=== PATIENT | female | born 1965 | race Caucasian/White ===

== ENCOUNTER → 2023-03-29 11:06 | Outpatient (CLI) | payer OTHER, SELFPAY ==
[2023-03-29 11:47] LABS: Add Manual Diff / Slide Review NO; Basophils Absolute Auto 100 /uL (0-100); Basophils Percent Auto 1.2 % (0-2); Eosinophils Absolute Auto 100 /uL (0-450); Eosinophils Percent Auto 2.8 % (2-4); Hematocrit 41.2 % (36-46); Hemoglobin 13.7 g/dL (12.0-16.0); Lymphocytes Absolute Auto 1700 /uL (1100-4500); Mean Corpuscular HGB Conc 33.2 % (30-36); Mean Corpuscular Volume 93.2 fL (80-100); Monocytes Absolute Auto 500 /uL (0-900); Monocytes Percent Auto 9.1 % (3-14); Neutrophils Absolute Auto 2900 /uL (1500-7000); Neutrophils Percent Auto 54.9 % (50-75); Platelet Count 338 X10^3/uL (150-400); Red Blood Cell Count 4.42 X10^6/uL (4.0-5.2); Red Cell Distribution Width 12.9 % (11.6-14.8); White Blood Cell Count 5.2 X10^3/uL (4.5-11.0)
[2023-03-29 11:52] LABS: Appearance Urine UA CLEAR; Bilirubin Urine UA NEGATIVE (NEGATIVE); Color Urine UA YELLOW; Glucose Urine UA NEGATIVE (Negative); Ketones Urine UA NEGATIVE (NEGATIVE); Leukocyte Esterase Urine UA NEGATIVE (NEGATIVE); Nitrite Urine UA NEGATIVE (Negative); Occult Blood Urine UA NEGATIVE (Negative); Protein Urine UA NEGATIVE (Negative); Urobilinogen Urine UA 0.2 E.U./dL (0.2)
[2023-03-29 11:54] LABS: pH Urine UA 6.5 (4.5-8.0)
[2023-03-29 12:00] LABS: Bacteria Urine None Seen; Culture Indicated Urine Cult Not Indicated; RBC Urine None Seen (0-5/HPF); Squamous Epithelial Cell Urine None Seen (0-5/HPF); WBC Urine None Seen (0-5/HPF)
[2023-03-29 12:02] LABS: Hemoglobin A1C% w Est Avg Glu 5.3 % (4.0-6.0)
[2023-03-29 12:07] LABS: Erythrocyte Sedimentation Rate 18 MM/HR (0-20)
[2023-03-29 12:17] LABS: BUN Creatinine Ratio 27.3 (6-22); Blood Urea Nitrogen 18 mg/dL (7-17); Calcium 9.7 mg/dL (8.4-10.2); Carbon Dioxide 27 mmol/L (22-32); Chloride 102 mmol/L (98-107); Estimated Glomerular Filt Rate > 60 mL/min (>60); Glucose 95 mg/dL (70-100); HEMOLYSIS < 15 (0-50); Potassium 4.7 mmol/L (3.4-5.1); Sodium 139 mmol/L (137-145)
[2023-03-29 20:12] LABS: C-Reactive Protein Quant 0.8 mg/dL (<1.0)
== END ==
PROVIDERS: Referring Provider Orthopaedic Surgery Adult Reconstructive Orthopaedic Surgery; Visit Provider Orthopaedic Surgery Adult Reconstructive Orthopaedic Surgery
DX: Z01.818 Encounter for other preprocedural examination (principal); Z01.812 Encounter for preprocedural laboratory examination; R73.9 Hyperglycemia, unspecified; N39.0 Urinary tract infection, site not specified; R70.0 Elevated erythrocyte sedimentation rate; R79.82 Elevated C-reactive protein (CRP); M25.552 Pain in left hip
CPT/HCPCS: 36415; 80048; 81001; 83036; 85025; 85651; 86140; 93005; 93010

== ENCOUNTER → 2023-04-04 13:35 | Outpatient (CLI) | payer OTHER, SELFPAY ==
--- NOTE | 2023-04-04 13:36 | DI.RAD.S_ITS ---
PROCEDURE: FL FLUOROSCOPY >1HR INDICATIONS: LEFT HIP PAIN TECHNIQUE: An appropriate site was chosen for fluoroscopic guided joint aspiration and the skin was marked. Skin was prepped and draped in the usual sterile fashion. 1 % lidocaine was used for local anesthesia. 22 gauge spinal needle and subsequently an 18 gauge spinal needle were advanced into the joint space under intermittent fluoroscopic guidance. Multiple aspiration attempts were performed, which yielded scant fluid. 6 cc of sterile normal saline were injected into the joint and additional aspiration attempt was performed, also yielding scant fluid insufficient for laboratory analysis. Needle was withdrawn and a bandage was placed. Patient tolerated the procedure well without immediate complication. COMPARISON: [facility] [place], CR, XR PELVIS WITH LATERAL HIP LEFT, 03/29/2023, 10:02. FINDINGS: Postsurgical changes from left total hip arthroplasty. Needle positioning is partially obscured by arthroplasty hardware. IMPRESSION: Successful fluoroscopically guided access of the left hip for aspiration. No significant fluid was obtained for laboratory analysis despite multiple aspiration attempts. Approved by: Douglas Cespedes M.D. on 04/04/2023 at 15:40
[2023-04-04] MEDS: SODIUM CHLORIDE 0.9 % 20 ML VIAL IV (15:12)
[2023-04-04] MEDS: LIDOCAINE 1% 20 ML INJ (15:12)
== END ==
LOC: RAD 13:35
PROVIDERS: Referring Provider Orthopaedic Surgery Adult Reconstructive Orthopaedic Surgery; Visit Provider Orthopaedic Surgery Adult Reconstructive Orthopaedic Surgery
DX: M25.552 Pain in left hip (principal); Z96.642 Presence of left artificial hip joint
CPT/HCPCS: 76000

== ENCOUNTER 2023-05-19 16:00 | Observation (INO) | payer OTHER, SELFPAY ==
[2023-05-10 12:33] VITALS: BMI 35.2
[2023-05-18] VITALS (13 sets, daily range): BP systolic 96–125; BP diastolic 51–84; PULSE 52–79; RESP 10–20; TEMP 35.8–36.3; O2SAT 93–100; BMI 35.2
--- NOTE | 2023-05-18 | DI.RAD.S_ITS ---
PROCEDURE: XR HIP W PEL IF DONE RT 2V INDICATIONS: RT TOTAL HIP TECHNIQUE: AP pelvis and lateral view of the hip acquired. COMPARISON: [facility], CR, XR HIP W PEL IF DONE RT 2V, 05/18/2023, 10:09. FINDINGS: Bones: Patient is status post right hip arthroplasty, with hardware components in expected positions. The hip joint appears congruent. The visualized bony structures appear intact. Soft tissues: Overlying postoperative changes are noted. No suspicious soft tissue densities. IMPRESSION: Right hip arthroplasty changes. Partially visualized left hip arthroplasty Please see operative note for full details. Dictated by: Cameron Perla M.D. on 05/18/2023 at 11:38 Approved by: Cameron Perla M.D. on 05/18/2023 at 11:39
[2023-05-18 07:16] LABS: Add Manual Diff / Slide Review NO; Basophils Absolute Auto 0 /uL (0-100); Basophils Percent Auto 0.9 % (0-2); Eosinophils Absolute Auto 200 /uL (0-450); Eosinophils Percent Auto 4.4 % (2-4); Hemoglobin 12.8 g/dL (12.0-16.0); Lymphocytes Absolute Auto 1800 /uL (1100-4500); Lymphocytes Percent Auto 37.1 % (25-40); Mean Corpuscular HGB Conc 33.8 % (30-36); Mean Corpuscular Volume 91.7 fL (80-100); Monocytes Absolute Auto 600 /uL (0-900); Monocytes Percent Auto 11.8 % (3-14); Neutrophils Absolute Auto 2200 /uL (1500-7000); Neutrophils Percent Auto 45.8 % (50-75); Platelet Count 232 X10^3/uL (150-400); Red Blood Cell Count 4.14 X10^6/uL (4.0-5.2); Red Cell Distribution Width 13.2 % (11.6-14.8); White Blood Cell Count 4.8 X10^3/uL (4.5-11.0)
[2023-05-18] MEDS: LACTATED RINGERS 1,000 ML 42 ML IV (07:16)
--- NOTE | 2023-05-18 07:42 | PM.PREOP ---
Pre-operative Note Interval Note History & Physical reviewed/Exam performed by Physician: Yes Changes to H&P: No
[2023-05-18 07:54] LABS: BUN Creatinine Ratio 22.9 (6-22); Blood Urea Nitrogen 16 mg/dL (7-17); Calcium 9.1 mg/dL (8.4-10.2); Carbon Dioxide 28 mmol/L (22-32); Chloride 110 mmol/L (98-107); Estimated Glomerular Filt Rate > 60 mL/min (>60); Glucose 94 mg/dL (80-110); HEMOLYSIS < 15 (0-50); Potassium 4.4 mmol/L (3.4-5.1); Sodium 138 mmol/L (137-145)
--- NOTE | 2023-05-18 08:00 | DI.RAD.S_ITS ---
PROCEDURE: XR HIP W PEL IF DONE RT 2V INDICATIONS: right JAYLON. TECHNIQUE: AP pelvis and lateral view of the hip acquired. COMPARISON: [facility] [place], CR, XR PELVIS WITH LATERAL HIP LEFT, 03/29/2023, 10:02. [facility], CR, XR HIP W PEL IF DONE RT 2V, 05/18/2023, 8:51. FINDINGS: Bones: Patient is status post right total hip arthroplasty, with hardware components in expected positions. The hip joint appears congruent. The visualized bony structures appear intact. Stable appearance of the left hip arthroplasty. Soft tissues: Overlying postoperative changes are noted. No suspicious soft tissue densities. IMPRESSION: Expected post-operative appearance of a right hip arthroplasty. Approved by: Douglas Cespedes M.D. on 05/18/2023 at 14:16
[2023-05-18 08:04] LABS: Prothrombin Time 11.2 SECONDS (9.4-12.5)
[2023-05-18] MEDS: TRANEXAMIC ACID 1,000 MG in SODIUM CHLORIDE 0.9% 100 ML 200 MG IV ×2 (08:10→09:40)
[2023-05-18] MEDS: CEFAZOLIN 2 GM/100 ML PREMIX 100 ML IV ×3 (08:10→23:36)
--- NOTE | 2023-05-18 08:17 | SUR.OPER ---
Supine on padded Mayer table with bilateral legs secured in padded positioning boots and suspended in positioning spars, operative leg in traction per surgeon. Head on one pillow. Arms secured on padded armboard <90 degrees abduction. Padded perineal post in place per surgeon.
[2023-05-18] MEDS: ROPIVACAINE/EPI/CLONIDINE/KET 50 ML SYRINGE INJ (08:34)
[2023-05-18] MEDS: SODIUM CHLORIDE 0.9% 1,000 ML 84 ML IV (09:50)
--- NOTE | 2023-05-18 10:02 | P.OP_ITS ---
Operative Date/Time/Diagnoses Date of procedure: 05/18/23 Pre-op diagnosis: Right hip avascular necrosis Post-op diagnosis: same Procedure & Clinicians Procedure: Right total hip arthroplasty Same procedure as scheduled: Yes Surgeon: Devan Gamino Litigation Coordinator: Josette Grande Anesthesia Type: General and Local Operative Notes Estimated Blood Loss (mL): 350 Procedure in detail: Implants: Depuy Total Hip Arthroplasty: * Depuy [place] Gription size 50 cup? * Depuy Actis femoral stem size 3 high offset? * 32 mm + 1.5 ceramic femoral head? 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 She had initially been templated for a standard offset and a +1.5 head however this construct had instability. I initially changed to a standard offset with a +5 head which resulted in excessive lengthening. She had been 5 mm short preoperatively and ended up being considerably longer with that construct. I therefore transitioned to a high offset and a +1.5 head. This was stable at 100? of external rotation. Leg length and offset were appropriate radiographically. Postoperatively she will be on Lovenox Procedure in Detail: This patient was seen preoperatively and evaluated for hip pain which was refractory to numerous nonoperative treatment modalities. Their hip pain correlated with radiographic changes demonstrating significant degeneration in the hip joint. The risks and benefits of continued nonoperative management versus operative management were discussed at length and all of the patient?s questions were answered. Additional educational materials providing further details beyond our discussion in clinic were provided via a publicly available patient education video which included the incidence of medical complications associated with total hip arthroplasty, reasons for revision following total hip arthroplasty, and patient satisfaction rates following total hip arthroplasty. That video can be accessed at [email or web address] . With this understanding of the risks inherent to the procedure, the patient elected to move forward with operative management. Following preoperative optimization, the patient was scheduled for surgery. The patient was met in the preoperative holding area the day of the procedure and all questions were answered. The patient?s nares were swabbed with betadine in order to decolonize them from MRSA. Informed consent was signed and the operative limb was marked with indelible ink.? The patient was brought back to the operating room where anesthesia was induced. The patient was transferred to the [place] table and all bony prominences were padded. The operative site was prepped and draped in the usual sterile fashion. Prior to incision, tranexamic acid and cefazolin were administered. Operative templating images were displayed demonstrating the anticipated implant sizes and correct operative extremity. A timeout procedure was performed verifying the patient?s identity, medical comorbidities, allergies, relevant medications, anesthesia type and the surgical plan. All present were in agreement. The assistance of a physician computer lab assistant was required for positioning, room setup, soft tissue retraction and wound closure. Without this assistance, the procedure would have been significantly more challenging and time consuming.?? A direct anterior approach to the hip was utilized. This was performed with a longitudinal incision through a Heuter interval. The incision was planned 2 cm distal and 2 cm lateral to the ASIS extending towards the lateral patella, in line with the muscle body of the TFL. Following incision, the subcutaneous tissue was dissected while taking care to avoid injury to the lateral femoral cutaneous nerve. The fascia overlying the TFL was identified by dissecting off the overlying fat and identifying perforating vessels to the TFL. The TFL fascia was incised and dissected away from the medial border of the TFL. A cobra retractor was placed over the superior femoral neck between the abductors and the hip capsule and used to reflect the TFL laterally. A [place] self-retainer was then placed in the distal aspect of the wound between the TFL and the rectus femoris. This was tensioned to open up the direct anterior interval and the lateral circumflex vessels were identified and coagulated using electrocautery. The floor of the TFL fascia was incised, exposing the pericapsular fat overlying the hip capsule. A second cobra retractor was placed on the inferior femoral neck. A double-bent soft tissue retractor was placed on the anterior wall of the acetabulum and used to tension the reflected head of rectus femoris, which was then released in order to limit soft tissue tension. A capsulotomy was made in the midline of the anterior hip capsule in line with the femoral neck ending at the vastus tubercle. The double-bent retractor was removed in order to limit the amount of time that a soft tissue retractor remained on the anterior wall and protect the femoral nerve. Tag stitches were placed in the superior and inferior leaflets of the hip capsule. An Viral soft tissue retractor was introduced over the tag stitches and tensioned in the interval between the rectus femoris and the TFL in order to retract and protect those muscles. The cobra retractors were replaced intracapsularly, with one over the superior neck in the pocket created by the base of the greater trochanter and the other on the femoral head. The capsulotomy was extended laterally to the base of the greater trochanter and medially to the lesser trochanter. This required externally rotating the hip. Once the lesser trochanter had been identified, a neck cut was planned according to measurements from preoperative templating. A ruler was cut at the length measured between the superior aspect of the lesser trochanter and the collar of the prosthesis. This line was extended towards the inferior aspect of the lateral cobra retractor to plan a cut which would leave minimal residual femoral neck laterally. The neck was cut at 60 degrees of external rotation along that line. A second cut was performed to remove a large napkin ring and facilitate head extraction. The napkin ring cut and femoral head were removed.?? A broad anterior wall retractor was placed between the labrum and the anterior capsule so that the anterior capsule would prevent capturing and pinching the femoral nerve anteriorly. An additional retractor was placed on the posterior wall. External rotation and traction were applied through the [place] table so that the cut surface of the femoral neck would not restrict access to the acetabulum. The labrum was excised sharply and the pulvinar was excised with electrocautery to limit bleeding from branches of the obturator artery. Acetabular reamers were selected based on preoperative templating and measurements of the excised femoral head. These were introduced into the acetabulum. Fluoroscopy was utilized to replicate a standing AP pelvis radiograph by centering over the pelvis, rotating until there was appropriate symmetry between the obturator foramen, and introducing caudal tilt to match the position of the pubic symphysis relative to the sacrococcygeal junction according to the patient?s anatomy. Fluoroscopy was utilized to ensure appropriate reaming depth. Once satisfied with the reaming depth corresponding to the preoperative template and the pinch fit between the columns, an appropriate sized acetabular cup was selec robinson which would provide 1 mm of press-fit. This cup was introduced and manipulated until appropriate abduction and anteversion angles were obtained with careful attention to appropriate abduction and anteversion angles as evaluated by the position of the cup relative to the anterior and posterior de la cruz of the acetabulum and the AP fluoroscopy which recreated the patient?s standing radiograph. The cup was impacted into place. Peripheral osteophytes were removed. The acetabular liner was then placed with care to ensure locking of the locking mechanism.? Attention was then turned to the femur. All retractors were removed, traction was released, a retractor was placed in the interval between the hip capsule and the gluteus minimus, and the hip was externally rotated to 90 degrees. Traction was applied through the [place] table to tension the lateral capsule and this was released using electrocautery. Traction was released and a [place] hook was placed posteriorly around the proximal femur at the level of the vastus ridge. The table height was lowered in order to restrict the tension on the anterior structures during hip hyperextension to limit the risk of femoral nerve palsy. With traction off and the hip at 90 degrees of external rotation, the hip was hyperextended and adducted while manually elevating the femur away from the acetabulum with the [place] hook to ensure it would not be caught behind the greater trochanter. An asymmetric retractor was placed over the calcar and a broad double-pronged retractor was placed over the greater trochanter. The tag stitch capturing the lateral leaflet of the capsule was moved to the medial side, leaving the conjoined and piriformis tendons isolated in the face of the greater trochanter. The hip was externally rotated and elevated. A release of the conjoined tendon was not necessary in order to obtain adequate exposure for broaching. The canal was opened with an opening broach and a rasp was used to remove cancellous bone. A rongeur was used to remove the residual lateral bone at the base of the greater trochanter to avoid placing the stem in varus. The femur was then broached to the appropriate sized stem yielding good rotational f it and fill of the canal as well as appropriate version of the stem trial. Neck and head trials were placed, all retractors were removed and the hip was returned to neutral abduction and extension. I then reduced the hip. An AP pelvis fluoroscopic image matching the preoperative standing radiograph was obtained with both lesser trochanters visible and both hips in 40 degrees of external rotation. She had initially been templated for a standard offset and a +1.5 head however this construct had instability. I initially changed to a standard offset with a +5 head which resulted in excessive lengthening. She had been 5 mm short preoperatively and ended up being considerably longer with that construct. I therefore transitioned to a high offset and a +1.5 head. This was stable at 100? of external rotation.. An AP hip fluoroscopic image was obtained with the hip in neutral rotation which demonstrated appropriate leg length and offset. Hip stability was evaluated with 90 degrees of external rotation which demonstrated appropriate stability. The hip was dislocated and I returned to the broaching position. The definitive stem was placed and the trunnion was cleaned and dried. I placed a ceramic head onto the trunnion and impacted it into place on the Sheets taper.?? All retractors were removed and the hip was reduced. A dilute mixture of betadine and peroxide was used to bathe the soft tissues during final fluoroscopic assessment. Appropriate component positioning was confirmed on an AP pelvis radiograph with the operative and nonoperative legs in 40 degrees of external rotation, evaluating leg length and offset. Appropriate stem fill was evaluated on an AP hip radiograph with the operative leg in neutral rotation. No fractures were identified on these radiographs. Stability was satisfactory with a 90 degree external rotation test as well as a 45 degree drop test. The hip was copiously irrigated with pulse lavage. The capsule was closed with absorbable interrupted suture. The TFL fascia was closed with barbed suture while carefully protecting the lateral femoral cutaneous nerve from entrapment. A mixture of Ropivacaine, Epinephrine, Clonidine and Toradol was infiltrated throughout the soft tissues. The skin was closed with 2-0 and 3-0 sutures. Surgical glue was applied and a soft dressing was placed.??The sponge, instrument and needle counts were reported as being correct at the end of the case.??No obvious complications occurred. The [facility] [place] [facility] The patient emerged from anesthesia without difficulty and was taken to the PACU in a stable condition.? Plan for aftercare: * Anterior hip precautions * Weightbearing as tolerated * Mobilization as soon as the patient has recovered from anesthesia. If physical therapists are unavailable at the time the patient is ready to ambulate, then nursing staff should help patient ambulate * Lovenox 40 mg once per day for DVT prophylaxis * Multimodal pain regimen with no IV opioids ordered * Anticipate discharge home either later today or tomorrow morning * Follow up at [facility] in 2 weeks * Detailed postoperative instructions available at [email or web address]
[2023-05-18] MEDS: ACETAMINOPHEN IV 1,000 MG/100 ML VIAL 400 MG IV (10:15)
[2023-05-18] MEDS: OXYCODONE IR 5 MG TABLET PO ×2 (10:16→22:09)
[2023-05-18] MEDS: ONDANSETRON 4 MG/2 ML INJ IV (10:25)
[2023-05-18] MEDS: NEO/POLYMIX B/DEX OPHTH SUSP 1 DROPS EYE-LEFT ×4 (10:43→21:14)
[2023-05-18] MEDS: LACTATED RINGERS 1,000 ML 100 ML IV ×2 (11:56→21:14)
[2023-05-18] MEDS: ACETAMINOPHEN 325 MG TABLET 650 MG PO ×3 (11:57→23:36)
[2023-05-18] MEDS: TRAMADOL 50 MG TABLET PO ×2 (11:57→18:10)
[2023-05-18] MEDS: MINERAL OIL/PETROL OPHTH OINT 3.5 GM 1 APPLIC EYE-BOTH (12:34)
--- NOTE | 2023-05-18 12:38 | PC.NURSE ---
Pt arrived from PACU at 1106, A&Ox4, VSS, RA sat 88%, placed on 2L NC. c/o 4/10 pain to R hip and L eye. 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 Pt arrived with eye drops and an ice pack to L eye to help with relief, but still finding the eye discomfort very bothersome. Called down to PACU to get another lubricating eye ointment ordered for eye. C/o mild SOB, improved with oxygen. Patient and spouse oriented to room and call light. Bed in low position, SCDs on, call light within reach.
[2023-05-18] MEDS: IBUPROFEN 600 MG TABLET PO ×2 (15:42→21:13)
--- NOTE | 2023-05-18 15:42 | PT.IIE ---
Current Diagnoses Unilateral primary osteoarthritis, right hip (05/18/23) Surgery Performed Operation Date: 05/18/23 07:45 Actual Procedures p Total Hip Arthroplasty/Anterior Approach(Right) - Devan Gamino MD Surgical History (Last Updated 05/10/23 @ 13:16 by Robyn Rodriguez, RN) History of exam under anesthesia with hemorrhoid banding History of eye surgery History of right oophorectomy History of total left hip replacement Hx of cholecystectomy Hx of colonoscopy Hx of repair of left rotator cuff Hx of repair of right rotator cuff Medical History (Last Updated 05/10/23 @ 13:20 by Robyn Rodriguez, RN) ADHD Anxiety Asthma BCC (basal cell carcinoma), face Depression Diverticulitis (~04/19/23) Factor V Leiden GERD (gastroesophageal reflux disease) Hiatal hernia History of COVID-19 (~2021) History of revision of total replacement of left hip joint Osteoarthritis PTSD (post-traumatic stress disorder) Physical Therapy Inpatient Evaluation/Re-Eval M1 PT/OT-IP Prior Functional Status Start: 05/18/23 15:34 Freq: NEEDED Status: Active Protocol: Document 05/18/23 15:35 KJ (Rec: 05/18/23 15:42 KJ [id number]) Medical Review Prior Functional Status Mobility and Gait Ambulated without assistive device but with a trendelenburg gait. Indep mobility and ADLs Social History Household Members spouse Living Arrangements House Number of Floors (Floors) One Floor Number of Stairs To Enter/Railing? 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 PT-IP Current Condition Start: 05/18/23 15:34 Freq: NEEDED Status: Active Protocol: Document 05/18/23 15:35 KJ (Rec: 05/18/23 15:42 KJ [id number]) Physical Therapy Current Condition Current Condition Evaluation Date 05/18/23 Treatment Diagnosis Impairec mobility s/p R JAYLON anterior approach Onset Date 05/18/23 M3 PT-IP Subjective Start: 05/18/23 15:34 Freq: NEEDED Status: Active Protocol: Document 05/18/23 15:35 KJ (Rec: 05/18/23 15:42 KJ [id number]) Subjective Physical Therapy Visit Type Type Initial Evaluation Visit Start Time 14:30 Visit Stop Time 15:14 Physical Therapy Visit Comments Patient Comments R leg aches, eyes are bothering her, feels dizzy after sitting up Patient Goals Indep mobility Therapy Pain Assessment Pain When Pain Assessed At Rest Pain Present Pain Present Pain Reported Location R hip Intensity 4 left eye Description Aching M4 PT-IP Mobility and Gait Start: 05/18/23 15:34 Freq: NEEDED Status: Active Protocol: Document 05/18/23 15:35 KJ (Rec: 05/18/23 15:42 KJ [id number]) PT-Bed Mobility Assessment Rolling Type of Rolling Roll to Right Level of Assist Minimal Assistance Supine to Sit Supine to Sit Moderate Assistance Sit to Supine Sit to Supine Moderate Assistance Scooting Scooting to Edge of Bed Minimal Assistance Scooting Up and Down in Bed Minimal Assistance PT-Transfer Assessment Sit to and From Stand Sit to and from Stand Contact Guard Assistance Equipment Transfer Assistive Device Front Wheeled Walker Orthotic/Prosthetic Devices or Brace: No Comments Mobility Comments Pt became dizzy after sitting x 2 min. Returned to supine position under care of nursing staff PT-Balance Assessment Sitting Balance and Reactions Static Sitting Balance Ability Good M5 PT-IP Objective Assessments Start: 05/18/23 15:34 Freq: NEEDED Status: Active Protocol: Document 05/18/23 15:35 KJ (Rec: 05/18/23 15:42 KJ [id number]) Orientation Orientation/Cognition Level of Alertness Alert Orientation Name,Birthday,Month,Date,Year, Situation Language Function Ability No Deficits Noted Safety Awareness Understands Safety Issues Gross Range of Motion Upper Extremity ROM Assessment Within Functional Limits Lower Extremity ROM Assessment Right Impaired Impairments s/p THR Strength Upper Extremity Strength Assessment Within Functional Limits Lower Extremity Strength Hip 2/5 Knee 3/5 Ankle 5/5 Coordination Assessment Gross Coordination Gross Coordination WNL M6 PT-IP Treatment Start: 05/18/23 15:34 Freq: NEEDED Status: Active Protocol: Document 05/18/23 15:35 KJ (Rec: 05/18/23 15:42 KJ [id number]) Physical Therapy Treatment Exercises Exercises Ankle Pumps,Gluteal Sets,Quad Sets,Heel Slides Education Education Provided Precautions,Weight Bearing Status,Safety M7 PT-IP Assessment and Plan Start: 05/18/23 15:34 Freq: NEEDED Status: Active Protocol: Document 05/18/23 15:35 KJ (Rec: 05/18/23 15:42 KJ [id number]) PT Summary Assessment and Plan Potential Rehabilitation Potential Excellent Status of Condition at Evaluation Evolving Summary Impairments Pain,ROM,Strength,Bed Mobility ,Transfers Assessment Summary poor tolerance to upright position Goals Bed Mobility Goal Standby Assistance Transfer Goal Standby Assistance Gait Goal Standby Assistance Gait Distance 100' Other Goals Able to perform HEP Frequency of Treatment Frequency Of Treatment Twice a Day Treatment Plan Physical Therapy Treatment Plan Bed Mobility Training,Transfer Training,Gait Training, Therapeutic Exercise Precautions Anterior Hip Precautions No Hip Extension,No Hip External Rotation Weight Bearing Status Weight Bearing Status Weight Bear as Tolerated Recommendations To Nursing Amount of Assist Needed 1 Person Assist Discharge Recommendations PT Discharge Recommendations Home with Assistance Transportation Needs at Discharge Private Vehicle
--- NOTE | 2023-05-18 17:10 | P.PN_ITS ---
Subjective Subjective Interval history: Patient seen postoperatively. Resting comfortably. Pain appropriately controlled. She had some irritation of her left eye upon awakening from anesthesia. I have provided her an ointment with erythromycin and dexamethasone. This is helping. She has a history of ophthalmologic surgery on that eye with an implant. She is going to follow up in the outpatient setting regarding any impact on her eye from her presumed corneal abrasion and we will continue with the ointment. She sat upright with physical therapy and attempted to stand but became lightheaded and sat back down. She is going to stay overnight and we will plan to work with physical therapy again tomorrow. She is not having any other issues at this point in time. Given her factor 5 Leiden we will start Lovenox 40 mg once per day tomorrow. I am going to have her go home with compression stockings as well. While she is here we will have her also use the pneumatic compression devices. Anticipate discharge home tomorrow Exam Vital Signs (past 8 hours): - 05/18/23 10:10 05/18/23 10:15 05/18/23 10:20 Temperature 97.2 F L Pulse Rate 79 75 52 L Respiratory Rate 12 12 12 Blood Pressure 122/63 115/62 96/64 Pulse Oximetry 98 98 98 Oxygen Delivery Method Room Air Room Air Room Air Oxygen Flow Rate 05/18/23 10:25 05/18/23 10:30 05/18/23 10:44 Temperature 97.2 F L Pulse Rate 74 70 68 Respiratory Rate 12 10 L 10 L Blood Pressure 104/60 109/69 113/59 L Pulse Oximetry 99 96 95 Oxygen Delivery Method Room Air Room Air Room Air Oxygen Flow Rate 05/18/23 11:06 05/18/23 11:06 05/18/23 11:30 Temperature 96.5 F L 96.5 F L Pulse Rate 60 60 Respiratory Rate 20 20 Blood Pressure 107/51 L 107/51 L Pulse Oximetry 97 97 Oxygen Delivery Method Nasal Cannula Oxygen Flow Rate 0 0 05/18/23 11:36 05/18/23 12:06 05/18/23 13:06 Temperature Pulse Rate 61 66 65 Respiratory Rate Blood Pressure 117/62 111/64 100/60 Pulse Oximetry 100 100 93 Oxygen Delivery Method Oxygen Flow Rate 2 0 0 05/18/23 14:06 Temperature Pulse Rate 65 Respiratory Rate Blood Pressure 105/84 Pulse Oximetry 97 Oxygen Delivery Method Oxygen Flow Rate 0 Oxygen Delivery Method Nasal Cannula Oxygen Flow Rate 0 Objective Labs 05/18/23 06:50 05/18/23 07:20 Labs: Laboratory Results - last 24 hr 05/18/23 05/18/23 05/18/23 06:50 07:20 07:45 WBC 4.8 RBC 4.14 Hgb 12.8 Hct 38.0 MCV 91.7 MCH 31.0 MCHC 33.8 RDW 13.2 Plt Count 232 Neut % (Auto) 45.8 L Lymph % (Auto) 37.1 [place] % (Auto) 11.8 Eos % (Auto) 4.4 H Baso % (Auto) 0.9 Neut # (Auto) 2200 Lymph # (Auto) 1800 [place] # (Auto) 600 Eos # (Auto) 200 Baso # (Auto) 0 PT 11.2 INR 1.0 Sodium 138 Potassium 4.4 Chloride 110 H Carbon Dioxide 28 BUN 16 Creatinine 0.70 Estimated GFR > 60 BUN/Creatinine Ratio 22.9 H Glucose 94 Calcium 9.1 Blood Type O Positive Antibody Screen Negative Crossmatch See Detail [facility] Medical History (Updated 05/10/23 @ 13:20 by Robyn Rodriguez RN) History of revision of total replacement of left hip joint PTSD (post-traumatic stress disorder) ADHD Anxiety Depression BCC (basal cell carcinoma), face Osteoarthritis Hiatal hernia GERD (gastroesophageal reflux disease) Diverticulitis (~04/19/23) Asthma Factor V Leiden History of COVID-19 (~2021) Surgical History (Updated 05/10/23 @ 13:16 by Robyn Rodriguez RN) Hx of colonoscopy History of exam under anesthesia with hemorrhoid banding Hx of repair of left rotator cuff Hx of repair of right rotator cuff History of total left hip replacement History of right oophorectomy Hx of cholecystectomy History of eye surgery Social History household members: spouse Smoking Status: Former smoker alcohol intake: current Quality VTE Deep Vein Thrombosis/Pulmonary Embolism Present on Admission: No
[2023-05-18] MEDS: FAMOTIDINE 20 MG TABLET PO (18:10)
[2023-05-18] MEDS: DOCUSATE 100 MG CAPSULE PO (21:13)
[2023-05-19] VITALS (12 sets, daily range): BP systolic 64–131; BP diastolic 27–58; PULSE 46–94; RESP 16–22; TEMP 36–36.9; O2SAT 93–98
[2023-05-19] MEDS: IBUPROFEN 600 MG TABLET PO ×4 (03:56→20:43)
[2023-05-19] MEDS: TRAMADOL 50 MG TABLET PO ×2 (03:56→09:16)
[2023-05-19] MEDS: ACETAMINOPHEN 325 MG TABLET 650 MG PO ×3 (05:53→17:58)
[2023-05-19 06:30] LABS: Hematocrit 29.1 % (36-46)
[2023-05-19] MEDS: DOCUSATE 100 MG CAPSULE PO ×2 (08:19→20:43)
[2023-05-19] MEDS: OXYCODONE IR 5 MG TABLET PO ×4 (08:19→18:55)
[2023-05-19] MEDS: FAMOTIDINE 20 MG TABLET PO ×2 (08:19→16:32)
[2023-05-19] MEDS: ENOXAPARIN 40 MG/0.4 ML SYRINGE SUBCUT (08:19)
[2023-05-19] MEDS: NEO/POLYMIX B/DEX OPHTH SUSP 1 DROPS EYE-LEFT ×4 (08:21→20:35)
--- NOTE | 2023-05-19 09:00 | PT.IPTN ---
Current Diagnoses Unilateral primary osteoarthritis, right hip (05/18/23) Surgery Performed Operation Date: 05/18/23 07:45 Actual Procedures p Total Hip Arthroplasty/Anterior Approach(Right) - Devan Gamino MD Physical Therapy Treatment Note M2 PT-IP Current Condition Start: 05/18/23 15:34 Freq: NEEDED Status: Active Protocol: Document 05/18/23 15:35 KJ (Rec: 05/18/23 15:42 KJ [id number]) Physical Therapy Current Condition Current Condition Evaluation Date 05/18/23 Treatment Diagnosis Impairec mobility s/p R JAYLON anterior approach Onset Date 05/18/23 M3 PT-IP Subjective Start: 05/18/23 15:34 Freq: NEEDED Status: Active Protocol: Document 05/19/23 09:36 TS (Rec: 05/19/23 09:47 TS [id number]) Subjective Physical Therapy Visit Type Type Treatment Note Visit Start Time 09:00 Visit Stop Time 09:35 Number of VULCAN CREWMEMBER Visits 1 Physical Therapy Visit Comments Patient Comments Pt found resting in bed, 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 Therapy Pain Assessment Pain When Pain Assessed At Rest Pain Present Pain Present Pain Reported M4 PT-IP Mobility and Gait Start: 05/18/23 15:34 Freq: NEEDED Status: Active Protocol: Document 05/19/23 09:36 TS (Rec: 05/19/23 09:47 TS [id number]) PT-Bed Mobility Assessment Supine to Sit Supine to Sit Standby Assistance Sit to Supine Sit to Supine Contact Guard Assistance Scooting Scooting to Edge of Bed Standby Assistance Scooting Up and Down in Bed Standby Assistance PT-Transfer Assessment Sit to and From Stand Sit to and from Stand Standby Assistance Equipment Transfer Assistive Device Gait Belt,Front Wheeled Walker Orthotic/Prosthetic Devices or Brace: No Comments Mobility Comments BP in supine 117/54 prior to mobility. Supine to sit SBA with HOB elevated 30D. STS from bed SBA with FWW, pt had good standing balance. She ambulated to toilet SBA ~10' with FWW, denied any dizziness . STS from toilet SBA with use of grab bars. Pt stood for taking of medications, agreeable to ambulate further. She ambulated in hallway ~60' SBA with FWW, pt began to report blurred vision and some dizziness. pt ambulated back to room, rpeortd feeling hot and sweaty, she sat EOB. BP in sitting 64/27. Sit to supine CGA for LEs' into bed, she scooted to HOB SBA, nurisng in room checking on pt. BP in supine 108/49. Pt was left with nursing and all needs met . Gait Assessment Gait Gait Assistance Required: Standby Assistance Distance (Feet) 70 Able to Maintain Weight Bearing Status Yes During Gait Assistive Devices Assistive Device Gait Belt,Front Wheeled Walker Orthotic/Prosthetic Devices or Brace: No Gait Deviations General Gait Pattern Antalgic,Decreased Stride Length,Decreased Feet Clearance,Step-to Gait Factors Limiting Gait Function Factors Limiting Gait Function Decreased Activity Tolerance, Decreased Strength,Pain,Poor Balance PT-Balance Assessment Sitting Balance and Reactions Static Sitting Balance Ability Good Dynamic Sitting Balance Ability Good Standing Balance and Reactions Static Standing Balance Ability Good Dynamic Standing Balance Ability Fair M5 PT-IP Objective Assessments Start: 05/18/23 15:34 Freq: NEEDED Status: Active Protocol: Document 05/18/23 15:35 KJ (Rec: 05/18/23 15:42 KJ [id number]) Orientation Orientation/Cognition Level of Alertness Alert Orientation Name,Birthday,Month,Date,Year, Situation Language Function Ability No Deficits Noted Safety Awareness Understands Safety Issues Gross Range of Motion Upper Extremity ROM Assessment Within Functional Limits Lower Extremity ROM Assessment Right Impaired Impairments s/p THR Strength Upper Extremity Strength Assessment Within Functional Limits Lower Extremity Strength Hip 2/5 Knee 3/5 Ankle 5/5 Coordination Assessment Gross Coordination Gross Coordination WNL M6 PT-IP Treatment Start: 05/18/23 15:34 Freq: NEEDED Status: Active Protocol: Document 05/19/23 09:36 TS (Rec: 05/19/23 09:47 TS [id number]) Physical Therapy Treatment Education Education Provided Precautions,Weight Bearing Status,Safety M7 PT-IP Assessment and Plan Start: 05/18/23 15:34 Freq: NEEDED Status: Active Protocol: Document 05/19/23 09:36 TS (Rec: 05/19/23 09:47 TS [id number]) PT Summary Assessment and Plan Potential Rehabilitation Potential Excellent Summary Impairments Pain,ROM,Strength,Bed Mobility ,Transfers Progress Towards Goals Slow Progress due to Medical Issues Assessment Summary Amita is making some progress with her mobility but remains limited by ongoing hypotension . She is SBA for bed mobility with HOB elevated. She progressed her gait to ~70'SBA with FWW. While ambulating pt became dizzy, hot, sweaty and had some blurred vision(see vitals in mobility comments).. She is mobilizing well despite her hypotension. PT is recommending home with assist and outpatient PT when medically stable. Goals Bed Mobility Goal Standby Assistance Transfer Goal Standby Assistance Gait Goal Standby Assistance Gait Distance 100' Other Goals Able to perform HEP Frequency of Treatment Frequency Of Treatment Twice a Day Treatment Plan Physical Therapy Treatment Plan Bed Mobility Training,Transfer Training,Gait Training, Therapeutic Exercise Precautions Anterior Hip Precautions No Hip Extension,No Hip External Rotation Weight Bearing Status Weight Bearing Status Weight Bear as Tolerated Recommendations To Nursing Amount of Assist Needed 1 Person Assist Discharge Recommendations PT Discharge Recommendations Home with Assistance, Outpatient PT Transportation Needs at Discharge Private Vehicle
--- NOTE | 2023-05-19 09:44 | P.DS_ITS ---
History of Present Illness History of Present Illness Date Patient Seen: 05/19/23 Time Patient Seen: 09:44 Chief complaint: Right Total Hip Arthroplasty/Anterior Approach Narrative: Operative Date/Time/Diagnoses Date of procedure: 05/18/23 Pre-op diagnosis: Right hip avascular necrosis Post-op diagnosis: same Procedure & Clinicians Procedure: Right total hip arthroplasty Same procedure as scheduled: Yes Surgeon: Devan Gamino Bitumastic Applier: Josette Grande Anesthesia Type: General and Local Operative Notes Estimated Blood Loss (mL): 350 Procedure in detail: Implants: Depuy Total Hip Arthroplasty: * Depuy [place] Gription size 50 cup? * Depuy Actis femoral stem size 3 high offset? * 32 mm + 1.5 ceramic femoral head? 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 She had initially been templated for a standard offset and a +1.5 head however this construct had instability. I initially changed to a standard offset with a +5 head which resulted in excessive lengthening. She had been 5 mm short preoperatively and ended up being considerably longer with that construct. I therefore transitioned to a high offset and a +1.5 head. This was stable at 100? of external rotation. Leg length and offset were appropriate radiographically. Postoperatively she will be on Lovenox Discharge Providers Provider Discharge Date: 05/19/23 Consults: 05/11/23 12:38 Consult to Anesthesiology Routine Comment: Consulting Provider: Anesthesiologist Reason for consultation: Regional block for post operative pain control 05/18/23 11:23 Consult to Discharge Planning Routine Comment: Consult to Physical Therapy Evaluate & Treat Comment: Physician Instructions: post op JAYLON protocol Discharge provider: Maureen Phillips PA-C Summary Hospital Course Discharge Diagnosis: Right hip avascular necrosis, s/p right total hip arthroplasty Hospital Course: Ms Mayfield's hospital course was unremarkable. On the morning of POD# 1, she was feeling well and wanted to go home. She was eating and voiding without difficulty, and her pain was well-controlled with oral medication. She was evaluated by PT and they felt she was safe to discharge home. Her RN reported an episode of orthostatic hypotension, but she was otherwise stable. She suffered a corneal abrasion during surgery and initially had very poor vision in her left eye, but this mostly resolved. She has bilateral Intacs and was encouraged to follow up with her garment mender for evaluation. Exam Vital Signs (past 8 hours): - 05/19/23 04:45 05/19/23 08:27 Temperature 97.6 F 97.6 F Pulse Rate 61 63 Respiratory Rate 18 17 Blood Pressure 118/58 L 96/56 L Pulse Oximetry 97 98 Oxygen Flow Rate 0 0 Oxygen Delivery Method Nasal Cannula Oxygen Flow Rate 0 Narrative Exam Narrative: 5/5 strength in hip flexors, quadriceps, hamstrings, DF, PF, EHL on right. Sensation to light touch intact throughout RLE. Calf soft, compressible, nontender. Aquacel dressing CDI. Objective Labs 05/19/23 05:45 05/18/23 07:20 Labs: Laboratory Results - last 24 hr 05/19/23 05:45 Hgb 10.0 L Hct 29.1 L PFSH Medical History (Updated 05/10/23 @ 13:20 by Robyn Rodriguez RN) History of revision of total replacement of left hip joint PTSD (post-traumatic stress disorder) ADHD Anxiety Depression BCC (basal cell carcinoma), face Osteoarthritis Hiatal hernia GERD (gastroesophageal reflux disease) Diverticulitis (~04/19/23) Asthma Factor V Leiden History of COVID-19 (~2021) Surgical History (Updated 05/19/23 @ 09:50 by Maureen Phillips PA-C) Hx of colonoscopy History of exam under anesthesia with hemorrhoid banding Hx of repair of left rotator cuff Hx of repair of right rotator cuff History of total left hip replacement History of right oophorectomy Hx of cholecystectomy History of eye surgery Social History household members: spouse Smoking Status: Former smoker alcohol intake: current Discharge Assessment & Plan Assessment and Plan Assessment: Right hip avascular necrosis, s/p right total hip arthroplasty Plan of Treatment: Discharge home, lovenox for VTE prophylaxis (pt has rx), multmodal pain control. Pt requests Tramadol rather than oxycodone - will send rx. Outpt PT, f/u in office in 2 weeks as scheduled. Discharge Plan Discharge Plan Patient Disposition: Home Discharge orders & Medications Discharge Orders: Discharge (Order); Ordered 05/19/23 Ordered By: Maureen Phillips Prescriptions: New tramadol 50 mg Tablet 50 mg PO QID PRN (Reason: Pain, Moderate (4-6)) Qty: 60 0RF Continued famotidine 20 mg Tablet 20 mg PO QD-BID PRN (Reason: GI Upset) Follow up/Referrals: Devan Gamino MD [Physician] - 06/01/23 2:00 pm (Follow up w/ Christiano Butt PA-C, at [facility] in [place]) Diet/Activity/Treatments Diet: Diet as Tolerated Activity: Weightbearing as tolerated to right leg. Posterior hip precautions. Cold/Heat Therapy: Ice to hip as needed for pain. Skin/Wound/Dressing Care Report to your healthcare provider any signs of infection, such as:: chills, fever, night sweats, unusual drainage and unusual redness Dressing: May shower. Leave dressing in place until follow up in office. No bathing or otherwise soaking incision. Call the office if the dressing becomes saturated inside. Visit Report/Discharge Packet Instructions: DI for Hip Replacement, DI for Prescription Opioid Use Stand Alone Forms: Patient Portal/API, Surgery Discharge Discharge Data Attending Provider: Devan Gamino Quality VTE Deep Vein Thrombosis/Pulmonary Embolism Present on Admission: No
[2023-05-19] MEDS: TRAMADOL 50 MG TABLET 100 MG PO ×2 (13:19→20:43)
--- NOTE | 2023-05-19 13:59 | CM.DANOTE ---
Patient is a 58 yo female who was admitted on 05/18/23 for RTHA. Pt has [facility] [employer] for insurance and her PCP is not listed. EMR was reviewed. Per Ortho PA, pt tolerated procedure well and pain seems to be fairly managed, tolerating diet, voided independently and worked with PT and likely discharge home today after PT. Per LINING VAMPER, recommending home with assist but during CG training this AM, pt's bp tanked and pt requiring bolus and pending orthostatics might not be stable to d/c home yet today. SW met bedside with pt and spouse Mackenzie and explained role and they confirm that they live in [facility] and are both active and independent at baseline and pt does not use DME for ambulation at baseline and still drives. 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 Pt states her exhusband lives down the street if needed for assist and her son lives in [facility]. Pt preference is to remain overnight due to ongoing dizziness and 60/20 bp and is hopeful for discharge home tomorrow with spouse assist. Pt states she already has PT outpt set up after discharge. SW discussed HH services and frequency as well as SNF rehab in case pt's bp issues do not resolve and not safe for home and pt and spouse hopeful to avoid SNF but discussed pt's current auth for RTHA was SDC. Pt and spouse acknowledge understanding. Plan: SW to follow closely in the AM to confirm pt's bp issues have resolved and able to ambulate with PT towards home with spouse assist. SONAL Smith Discharge Planning/Care Management CM Discharge Assessment Start: 05/19/23 13:57 Freq: Status: Active Protocol: Document 05/19/23 13:58 BF (Rec: 05/19/23 13:59 BF [id number]) Discharge Planning Assessment Assigned Jig Bore Operator SONAL Bianchi DPOA/Assigned Designee Name spouse Mackenzie Contact Information [phone] Advance Directives? No Advance Directives on File No History Provided By Patient,Significant Other, Medical Record Has Patient been admitted in last 30 No days? Prior Living Arrangements House Household Members spouse Type of transporation used prior to Drives own vehicle admit Independent with ADL's Yes Is patient alert and oriented? Yes Caregiver for Another No Community Services used prior to Physical Therapy admission: DME Already Rented / Owned FWW / Walker Patient/Family Preference OP PT Therapy Barriers to Discharge Yes Comment BP issues, discharge cancelled for today Discharge Plan Home Community Services Physical Therapy Transportation Arrangement spouse bedside and plans to transport at d/c Additional Comment Pending pt's progress with orthostatics Whiteboard Updated in Patient Room with Yes name and ext. # of Jig Bore Operator Review Status In Process Please Provide Date Initial DC 05/19/23 Assessment Was Performed Next Review Type Continued Stay Review Pre-Anesthesia Assessment Start: 05/10/23 12:32 Freq: Status: Complete Protocol: Document 05/10/23 12:33 CAB (Rec: 05/10/23 13:25 CAB [id number]) Pre-Anesthesia Assessment Patient Information Reviewed Via Phone Assessment Assessment Completed With Patient Diagnostic Results BMP/CMP,CBC,EKG Comment Labs/EKG @ [facility] 03/29/23 Primary Care Provider Shruthi Cristobal Comment PCP clearance form 04/05/23 scanned and in surgery folder for dos Seen Specialist in Last 12 Months Yes Specialist Seen Orthopedist Primary Language Bulgarian Chemistry Tutor Required No Height 160.02 cm Weight 90.265 kg Body Mass Index (BMI) 35.2 Hearing Ability Normal Visual Assist Glasses Dentition Type Teeth, Natural Present Barriers to Learning None Hx Anesthesia Reactions No Hx Family Anesthesia Reaction No Hx Malignant Hyperthermia No Hx Blood Transfusions Yes: Autologous Anesthesia Review Requested No Command And Control No alcohol intake current alcohol intake frequency 0-2 drinks per day Smoking Status Former smoker how long ago did patient quit smoking Quit 2020 Substance Use Type marijuana Comment Edibles Pain Present Pain Reported Musculoskeletal Symptoms Abnormal Gait,Difficulty Walking,Joint Pain History of Falling (Recent or History of No ) Patient is completely paralyzed or No completely immobile Prosthesis or Orthotic Device Cane Mental Status Oriented to own ability Is patient on oxygen? No Does patient have MCCLURE/SOB No Hx Sleep Apnea No Currently Taking a Beta Martha No Hx Chest Pain No Hx SOB No Hx Syncope or Dizziness No Anti-Coagulant Therapy No Has a Desilverizer No Cardiac Testing No Hx Pacemaker/ICD No Pacemaker Rep Required? No Cardiac Clearance Received Not Applicable Diet Type At Home Regular Dysphagia No Gastrointestinal Symptoms Diarrhea,Reflux Urinary Catheter Present No Hx Urinary Self Catheterization No Diabetes No HgbA1C 5.3 Date 03/29/23 Patient No Lactating No Hx Drug Resistant Organism No Presence of External or Internal Medical Yes: Left hip, left eye Devices Received a COVID vaccine? Yes Received all doses? No Marital Status Lives With spouse Current Living Arrangements House Number of Floors (Floors) Two Floors Support System Spouse Does the Patient Have Assistance After Yes Surgery Patient Discharge Plan Description Return Home Comment Pt no advised on length of stay per surgeon Feels Safe in Current Environment Yes Been Physically Hurt or Threatened By a No Person in Current Environment Do you have thoughts of harming yourself None or others? Are you currently considering suicide? No Do you have a plan to hurt yourself or No Plan others? Do You Have Any Spiritual Beliefs That No May Affect Your HC Choices? Do You Have Any Cultural Practices That No May Affect Your HC Choices? Who Can We Speak to About Patient's Care Family, friends Identifying Code for Release of Patient Declines to issue Information Health Care Proxy/Next of Kin Mackenzie Mayfield () Health Care Proxy Emergency Contact Name Mackenzie Mayfield () Emergency Contact Advance Directives? No Power of Performing Arts [address] Manager No PAC Instructions Do not shave/clip surgical site,Durable medical equipment ,Medications to take/avoid, Nasal antibiotic,No ETOH/ petroleum product on skin DOS, NPO,Post-op transportation,Pre -surgical wash,Sensory aids, Sturdy shoes/comfortable clothes,Do not bring valuables and remove jewelry
--- NOTE | 2023-05-19 14:50 | PC.NURSE ---
Spoke to Dr. Park about this RNs concerns about the pt's continued hypotensive and despite LR infusing at 100 ml/hr and 500 ml bolus. Pt continues to remain hypotensive and become symptomatic with dizziness, diaphoretic, pale, and pt stated I feel like I'm going to pass out. Dr. Park provided the following the orders including that the pt will stay overnight tonight, continue LR at 100/hr, oxycodone 5 mg for moderate pain and 10 mg for pain greater than 5 out of 10.
--- NOTE | 2023-05-19 15:08 | PT-IP ANOTE ---
Per nursing pt continues to be orthostatic and is symptomatic, she is to receive more fluid this afternoon. Pt deferred to have PT tomorrow morning, she is getting up with nursing staff.
[2023-05-19] MEDS: LACTATED RINGERS 1,000 ML 100 ML IV (15:10)
[2023-05-19] MEDS: OXYCODONE IR 10 MG TABLET PO ×2 (15:10→18:30)
[2023-05-19] MEDS: HYDROMORPHONE 0.5 MG INJ 1 MG IV (17:58)
[2023-05-19] MEDS: polyethylene glycoL 3350 17 GM POWD.PACK PO (20:43)
[2023-05-20] MEDS: OXYCODONE IR 5 MG TABLET PO ×4 (00:17→10:54)
[2023-05-20] MEDS: ACETAMINOPHEN 325 MG TABLET 650 MG PO ×3 (00:18→11:38)
[2023-05-20 00:35] VITALS: BP 110/56; PULSE 80; RESP 16; TEMP 36.5; O2SAT 96
[2023-05-20] MEDS: LACTATED RINGERS 1,000 ML 100 ML IV (01:16)
[2023-05-20] MEDS: IBUPROFEN 600 MG TABLET PO ×2 (03:09→08:31)
[2023-05-20 03:21] VITALS: BP 142/52; PULSE 68; RESP 18; TEMP 36.4; O2SAT 98
--- NOTE | 2023-05-20 03:34 | PC.NURSE ---
Addendum entered by Robyn Mckinley R.N. 05/20/23 04:36: IVF continued per order* Original Note: teachers' assistant: Patient is AxOx4, VSS, O2 saturation 98% on RA. Hypotensive at start of shift, orthostatic vitals completed twice (see documentation), BP currently 142/52 (MAP 82). Ambulated to bathroom w/o drop in BP, denies dizziness/lightheadedness, tolerated well. Tolerating PO fluids well. d/c'd IVF. Pain adequately controlled w/ scheduled post-op meds & 5mg Oxycodone Q3hrs. Right hip incision covered w/ aquacel drsg is CDI, ice pack in place. Compression stockings & SCDs are on, CMS intact. Oriented to call-light. Plan of care ongoing.
[2023-05-20] MEDS: polyethylene glycoL 3350 17 GM POWD.PACK PO (08:30)
[2023-05-20] MEDS: ENOXAPARIN 40 MG/0.4 ML SYRINGE SUBCUT (08:30)
[2023-05-20] MEDS: DOCUSATE 100 MG CAPSULE PO (08:32)
[2023-05-20] MEDS: TRAMADOL 50 MG TABLET 100 MG PO ×2 (08:33→13:16)
[2023-05-20] MEDS: NEO/POLYMIX B/DEX OPHTH SUSP 1 DROPS EYE-LEFT ×2 (08:34→13:16)
[2023-05-20 09:05] VITALS: BP 111/66; PULSE 70; RESP 70; TEMP 36.6; O2SAT 99
--- NOTE | 2023-05-20 10:41 | PT.IPTN ---
Current Diagnoses Unilateral primary osteoarthritis, right hip (05/18/23) Presence of unspecified artificial hip joint (05/18/23) Surgery Performed Operation Date: 05/18/23 07:45 Actual Procedures p Total Hip Arthroplasty/Anterior Approach(Right) - Devan Gamino MD Physical Therapy Treatment Note M2 PT-IP Current Condition Start: 05/18/23 15:34 Freq: NEEDED Status: Active Protocol: Document 05/18/23 15:35 KJ (Rec: 05/18/23 15:42 KJ [id number]) Physical Therapy Current Condition Current Condition Evaluation Date 05/18/23 Treatment Diagnosis Impairec mobility s/p R JAYLON anterior approach Onset Date 05/18/23 M3 PT-IP Subjective Start: 05/18/23 15:34 Freq: NEEDED Status: Active Protocol: Document 05/20/23 10:03 KS (Rec: 05/20/23 11:24 KS [id number]) Subjective Physical Therapy Visit Type Type Treatment Note Visit Start Time 10:03 Visit Stop Time 10:41 Notes Spouse present for majority of treatment. Number of STATE ARCHIVIST Visits 2 Physical Therapy Visit Comments Patient Comments Pt in bed, eager to participate. M4 PT-IP Mobility and Gait Start: 05/18/23 15:34 Freq: NEEDED Status: Active Protocol: Document 05/20/23 10:03 KS (Rec: 05/20/23 11:24 KS [id number]) PT-Bed Mobility Assessment Supine to Sit Supine to Sit Minimal Assistance Sit to Supine Sit to Supine Minimal Assistance Scooting Scooting to Edge of Bed Standby Assistance Scooting Up and Down in Bed Standby Assistance PT-Transfer Assessment Sit to and From Stand Sit to and from Stand Standby Assistance Equipment Transfer Assistive Device Gait Belt,Front Wheeled Walker Orthotic/Prosthetic Devices or Brace: No Transfers Transfer Destination Bed Transfer Technique pt ambulated Transfer Ability Level of Assist Contact Guard Assistance, Minimal Assistance Comments Mobility Comments Pt in bed upon arrival, eager to get up w/ PT. BP did drop w / standing however pt denies symptoms, BP taken again after standing longer and did increase. Pt ambulated ~30 ft w/ FWW CGA, BP assessed again and increased slightyl. Pt stood to talk w/ Dr. Park upon arrival, and then ambulated additional 30 ft w/ FWW all without sitting, for a total standing time of 15 minutes. Pt reported feeling warm towards the end but denied dizziness, BP 100s/40s. Min A for LE elvation into bed. Pt able to scoot up in bed independently. Discussed HHPT as she does not have appointment for outpatient yet . Pt left in bed w/ all needs in reach and in room. Gait Assessment Gait Gait Assistance Required: Contact Guard Assist Distance (Feet) 60 Able to Maintain Weight Bearing Status Yes During Gait Assistive Devices Assistive Device Gait Belt,Front Wheeled Walker Orthotic/Prosthetic Devices or Brace: No Gait Deviations General Gait Pattern Antalgic,Decreased Stride Length,Decreased Feet Clearance,Step-to Gait Factors Limiting Gait Function Factors Limiting Gait Function Decreased Activity Tolerance, Decreased Strength,Pain,Poor Balance Comments Gait Comments Step to, good use of FWW, good adherence to precautions. Stair Climbing Assessment Comments Stair Climbing Comments no stairs at home. PT-Balance Assessment Sitting Balance and Reactions Static Sitting Balance Ability Good Dynamic Sitting Balance Ability Good Standing Balance and Reactions Static Standing Balance Ability Good Dynamic Standing Balance Ability Fair Device Used FWW M5 PT-IP Objective Assessments Start: 05/18/23 15:34 Freq: NEEDED Status: Active Protocol: Document 05/18/23 15:35 KJ (Rec: 05/18/23 15:42 KJ [id number]) Orientation Orientation/Cognition Level of Alertness Alert Orientation Name,Birthday,Month,Date,Year, Situation Language Function Ability No Deficits Noted Safety Awareness Understands Safety Issues Gross Range of Motion Upper Extremity ROM Assessment Within Functional Limits Lower Extremity ROM Assessment Right Impaired Impairments s/p THR Strength Upper Extremity Strength Assessment Within Functional Limits Lower Extremity Strength Hip 2/5 Knee 3/5 Ankle 5/5 Coordination Assessment Gross Coordination Gross Coordination WNL M6 PT-IP Treatment Start: 05/18/23 15:34 Freq: NEEDED Status: Active Protocol: Document 05/20/23 10:03 KS (Rec: 05/20/23 11:24 KS [id number]) Physical Therapy Treatment Exercises Exercises Ankle Pumps,Gluteal Sets,Quad Sets,Heel Slides Education Education Provided Precautions,Weight Bearing Status,Safety M7 PT-IP Assessment and Plan Start: 05/18/23 15:34 Freq: NEEDED Status: Active Protocol: Document 05/20/23 10:03 KS (Rec: 05/20/23 11:24 KS [id number]) PT Summary Assessment and Plan Potential Rehabilitation Potential Excellent Summary Impairments Pain,ROM,Strength,Bed Mobility ,Transfers Progress Towards Goals Slow Progress due to Medical Issues Assessment Summary Pt still somehwat limited by BP, however much better today and was able to tolerate 15 minutes standing and 60 ft ambulation w/ CGA and FWW. Pt has spouse at home, FWW, ice machine but is not yet set up for PT and would benefit from HHPT to improve functional mobility independence and strength. Goals Bed Mobility Goal Standby Assistance Transfer Goal Standby Assistance Gait Goal Standby Assistance Gait Distance 100' Other Goals Able to perform HEP Frequency of Treatment Frequency Of Treatment Twice a Day Treatment Plan Physical Therapy Treatment Plan Bed Mobility Training,Transfer Training,Gait Training, Therapeutic Exercise Precautions Anterior Hip Precautions No Hip Extension,No Hip External Rotation Weight Bearing Status Weight Bearing Status Weight Bear as Tolerated Recommendations To Nursing Amount of Assist Needed 1 Person Assist Discharge Recommendations PT Discharge Recommendations Home with Assistance,Home Health,Outpatient PT Transportation Needs at Discharge Private Vehicle
--- NOTE | 2023-05-20 10:52 | PM.PN.1 ---
Exam Vital Signs (past 8 hours): - 05/20/23 03:21 05/20/23 09:05 Temperature 97.6 F 97.8 F Pulse Rate 68 70 Respiratory Rate 18 70 H Blood Pressure 142/52 H 111/66 Pulse Oximetry 98 99 Oxygen Flow Rate 0 Oxygen Delivery Method Room Air Oxygen Flow Rate 0 Objective Labs 05/19/23 05:45 05/18/23 07:20 [facility] Medical History (Updated 05/10/23 @ 13:20 by Robyn Rodriguez RN) History of revision of total replacement of left hip joint PTSD (post-traumatic stress disorder) ADHD Anxiety Depression BCC (basal cell carcinoma), face Osteoarthritis Hiatal hernia GERD (gastroesophageal reflux disease) Diverticulitis (~04/19/23) Asthma Factor V Leiden History of COVID-19 (~2021) Surgical History (Updated 05/19/23 @ 09:50 by Maureen Phillips PA-C) Hx of colonoscopy History of exam under anesthesia with hemorrhoid banding Hx of repair of left rotator cuff Hx of repair of right rotator cuff History of total left hip replacement History of right oophorectomy Hx of cholecystectomy History of eye surgery Social History household members: spouse Smoking Status: Former smoker alcohol intake: current Assessment & Plan Assessment & Plan narrative: POD#2 s/p R JAYLON. Patient is doing well. Today her BP is stable when standing for more than 10 minutes with PT. She is asymptomatic. Her dressing is clean and dry. She is neurovascularly intact on exam. Will plan to d/c today once she's cleared by PT/OT. Quality VTE Deep Vein Thrombosis/Pulmonary Embolism Present on Admission: No
--- NOTE | 2023-05-20 12:05 | PT.IPTN ---
Current Diagnoses Unilateral primary osteoarthritis, right hip (05/18/23) Presence of unspecified artificial hip joint (05/18/23) Surgery Performed Operation Date: 05/18/23 07:45 Actual Procedures p Total Hip Arthroplasty/Anterior Approach(Right) - Devan Gamino MD Physical Therapy Treatment Note M2 PT-IP Current Condition Start: 05/18/23 15:34 Freq: NEEDED Status: Active Protocol: Document 05/18/23 15:35 KJ (Rec: 05/18/23 15:42 KJ [id number]) Physical Therapy Current Condition Current Condition Evaluation Date 05/18/23 Treatment Diagnosis Impairec mobility s/p R JAYLON anterior approach Onset Date 05/18/23 M3 PT-IP Subjective Start: 05/18/23 15:34 Freq: NEEDED Status: Active Protocol: Document 05/20/23 11:42 KS (Rec: 05/20/23 12:22 KS [id number]) Subjective Physical Therapy Visit Type Type Treatment Note Visit Start Time 11:42 Visit Stop Time 12:05 Notes Spouse present for treatment. Number of SURGICAL CODER Visits 3 Physical Therapy Visit Comments Patient Comments Pt agreeable Therapy Pain Assessment Pain When Pain Assessed During Weight Bearing Pain Present Pain Present Pain Reported Location R hip Intensity 5 Scale Used Numeric (0 - 10) Description Aching,Tightness Pain Behaviors Guarding Pain Management Techniques Elevation,Timing of Activity with Medications M4 PT-IP Mobility and Gait Start: 05/18/23 15:34 Freq: NEEDED Status: Active Protocol: Document 05/20/23 11:42 KS (Rec: 05/20/23 12:22 KS [id number]) PT-Bed Mobility Assessment Supine to Sit Supine to Sit Standby Assistance Scooting Scooting to Edge of Bed Standby Assistance PT-Transfer Assessment Sit to and From Stand Sit to and from Stand Standby Assistance,1 Person Assistance,Use of Upper Extremities Equipment Transfer Assistive Device Gait Belt,Front Wheeled Walker Orthotic/Prosthetic Devices or Brace: No Transfers Transfer Destination Bed Transfer Technique pt ambulated Transfer Ability Level of Assist Standby Assistance,Contact Guard Assistance,1 Person Assistance,Use of Upper Extremities Comments Mobility Comments Pt in bed w/ spouse in room. Agreeable to ambulate further distance. Initial drop in BP upon standing, w/o symptoms however BP increased following . Pt ambulated ~[address] w/ FWW CGA, no symptoms of low BP. Returned to room and left w/ spouse and all needs in reach. Gait Assessment Gait Gait Assistance Required: Contact Guard Assist Distance (Feet) 80 Able to Maintain Weight Bearing Status Yes During Gait Assistive Devices Assistive Device Gait Belt,Front Wheeled Walker Orthotic/Prosthetic Devices or Brace: No Gait Deviations General Gait Pattern Antalgic,Decreased Stride Length,Decreased Feet Clearance,Step-to Gait Factors Limiting Gait Function Factors Limiting Gait Function Decreased Activity Tolerance, Decreased Strength,Pain,Poor Balance Comments Gait Comments Step to, good use of FWW, good adherence to precautions. Able to tolerate 80 ft, pt and spouse feel ready to dc home. Stair Climbing Assessment Comments Stair Climbing Comments no stairs at home. PT-Balance Assessment Sitting Balance and Reactions Static Sitting Balance Ability Good Dynamic Sitting Balance Ability Good Standing Balance and Reactions Static Standing Balance Ability Good Dynamic Standing Balance Ability Good Device Used FWW M5 PT-IP Objective Assessments Start: 05/18/23 15:34 Freq: NEEDED Status: Active Protocol: Document 05/18/23 15:35 KJ (Rec: 05/18/23 15:42 KJ [id number]) Orientation Orientation/Cognition Level of Alertness Alert Orientation Name,Birthday,Month,Date,Year, Situation Language Function Ability No Deficits Noted Safety Awareness Understands Safety Issues Gross Range of Motion Upper Extremity ROM Assessment Within Functional Limits Lower Extremity ROM Assessment Right Impaired Impairments s/p THR Strength Upper Extremity Strength Assessment Within Functional Limits Lower Extremity Strength Hip 2/5 Knee 3/5 Ankle 5/5 Coordination Assessment Gross Coordination Gross Coordination WNL M6 PT-IP Treatment Start: 05/18/23 15:34 Freq: NEEDED Status: Active Protocol: Document 05/20/23 11:42 KS (Rec: 05/20/23 12:22 KS [id number]) Physical Therapy Treatment Exercises Exercises Ankle Pumps,Gluteal Sets,Quad Sets,Heel Slides Education Education Provided Precautions,Weight Bearing Status,Safety Other Treatments Other Treatment Performed discussed at home safety, caregiver training. M7 PT-IP Assessment and Plan Start: 05/18/23 15:34 Freq: NEEDED Status: Active Protocol: Document 05/20/23 11:42 KS (Rec: 05/20/23 12:22 KS [id number]) PT Summary Assessment and Plan Potential Rehabilitation Potential Excellent Summary Impairments Pain,ROM,Strength,Bed Mobility ,Transfers Progress Towards Goals Slow Progress due to Medical Issues Assessment Summary Pt still has some drop in BP, however BP regulates and no symptoms. Pt able to ambulate 80 ft w/ FWW CGA and requires only SBA to CGA for mobility. Spouse present and able to provide assistance. Pt has all necessary DME however does not have PT set up and would benefit from HHPT. Goals Bed Mobility Goal Standby Assistance Transfer Goal Standby Assistance Gait Goal Standby Assistance Gait Distance 100' Other Goals Able to perform HEP Frequency of Treatment Frequency Of Treatment Twice a Day Treatment Plan Physical Therapy Treatment Plan Bed Mobility Training,Transfer Training,Gait Training, Therapeutic Exercise Precautions Anterior Hip Precautions No Hip Extension,No Hip External Rotation Weight Bearing Status Weight Bearing Status Weight Bear as Tolerated Recommendations To Nursing Amount of Assist Needed 1 Person Assist Discharge Recommendations PT Discharge Recommendations Home with Assistance,Home Health,Outpatient PT Transportation Needs at Discharge Private Vehicle
--- NOTE | 2023-05-20 12:44 | CM.DPC ---
DCP Cont. Reviewed EMR and team rounds for status updates. Plan is for pt to d/c home today w/spouse, who will also provide transport. Her spouse also took several days off from work in order to assist pt with post-op recovery needs. Per Ortho's request, this [employer] placed orders in the EMR for Home Health, [facility] referral and clinicals to [facility]. Pt will be able to start OP PT in 2-weeks, following her post-op f/u visit with Ortho. No further DCP needs are identified at this time.
--- NOTE | 2023-05-20 14:44 | PC.NURSE ---
Patient teaching per discharge done at bedside with patient and spouse. Patient states understanding of all instructions. Questions and concerns were addressed. Patient states that prescriptions were already filled prior to surg. and are avail. at home. Patient left in stable condition, VSS. Belongings were taken town to private vehicle by spouse. Pt escorted by this nurse via WC. Pt ambulated without difficulty and was able to get self into vehicle.
== END 2023-05-20 13:45 | disposition home or self-care (01) ==
LOC: OR 05-21 09:33 → AC 05-21 09:33
PROVIDERS: Student in an Organized Health Care Education/Training Program; Admitting Provider Orthopaedic Surgery Adult Reconstructive Orthopaedic Surgery; Referring Provider Orthopaedic Surgery Adult Reconstructive Orthopaedic Surgery; Visit Provider Orthopaedic Surgery Adult Reconstructive Orthopaedic Surgery
PROC: (CPT 27130; principal; 2023-05-18 07:45)
DX: M16.11 Unilateral primary osteoarthritis, right hip (principal); M87.351 Other secondary osteonecrosis, right femur; D68.51 Activated protein C resistance
CPT/HCPCS: 27130; 73502; 76000; 80048; 85014; 85018; 85025; 85610; 86850; 86900; 86901; 97110; 97116; 97161; 97530; C1776; G0378; A9270; J0136; J0690; J1100; J1170; J1650; J1885; J2405; J2704; J3010; J3490

== ENCOUNTER 2023-12-26 14:08 | Emergency (ER) | payer OTHER, SELFPAY ==
[2023-05-18 12:20] VITALS: BMI 35.2
[2023-12-26 14:12] VITALS: BP 132/74; PULSE 75; RESP 26; TEMP 37.1; O2SAT 98; BMI 34.5
--- NOTE | 2023-12-26 14:20 | DI.RAD.S_ITS ---
PROCEDURE: XR CHEST 1V INDICATIONS: cough, sob TECHNIQUE: One view of the chest was acquired. COMPARISON: [facility], CT, CT LOW DOSE LUNG CA SCREENING, 09/15/2023, 16:26. FINDINGS: Surgical changes and devices: None. Lungs and pleura: Lungs are clear. No pleural effusions or pneumothorax. Mediastinum: Mediastinal contours appear normal. Heart size is normal. Bones and chest wall: No suspicious bony lesions. Overlying soft tissues appear unremarkable. IMPRESSION: No acute pulmonary process. Dictated by: Natasha Grande M.D. on 12/26/2023 at 15:09 Approved by: Natasha Grande M.D. on 12/26/2023 at 15:09
[2023-12-26 15:19] LABS: Adenovirus Not Detected (Not Detect); B. parapertussis Not Detected (Not Detecte); Bordetella pertussis Not Detected (Not Detect); Chlamydophila pneumoniae Not Detected (Not Detect); Coronavirus 229E Not Detected (Not Detect); Coronavirus HKU1 Not Detected (Not Detect); Coronavirus NL 63 Not Detected (Not Detect); Coronavirus OC43 Not Detected (Not Detect); Human Metapneumovirus Not Detected (Not Detect); Human Rhinovirus/Enterovirus Detected (Not Detect); Influenza A Not Detected (Not Detect); Influenza B Not Detected (Not Detect); Mycoplasma pneumoniae Not Detected (Not Detect); Parainfluenza Virus 1 Not Detected (Not Detect); Parainfluenza Virus 2 Not Detected (Not Detect); Parainfluenza Virus 3 Not Detected (Not Detect); Parainfluenza Virus 4 Not Detected (Not Detect); Respiratory Syncytial Virus Not Detected (Not Detect); SARS- CoV-2 Not Detected (Not Detecte)
--- NOTE | 2023-12-26 15:21 | ED.URI ---
HPI - URI/Sore Throat <Saniya Demarco PA-C - Last Filed: 12/26/23 16:46> General Chief Complaint: Upper Respiratory Symptoms Stated Complaint: diff breathing Time Seen by Provider: 12/26/23 15:21 Source: patient Mode of arrival: Ambulatory History of Present Illness HPI Narrative: Patient is a pleasant 4-year-old female that presents to the emergency room department 7 days for the cough, cold, congestion. Presented to the emergency room department today for onset of feeling as if she could not quite catch her breath. Patient denies recent travel, antibiotics, sick contacts. She has had no recent COVID boosters, flu shots or pneumonia shots. She is up-to-date on all immunizations. She does not smoke, no recreational drug use on a regular basis such as cannabis, she does not drink alcohol excessively. She has been around no one who is under the weather. She has been doing TheraFlu for only treatment of her symptoms. She has had to use an inhaler in the past and had an old albuterol inhaler at home and used several times but did not feel that it was giving her any relief. She presented to the emergency department because she is concerned that she might have pneumonia or some other respiratory illness. She has no other further complaints. Related Data Home Medications Medication Instructions Recorded Confirmed famotidine 20 mg tablet 20 mg PO QD-BID PRN GI Upset 05/10/23 05/18/23 Previous Rx's Medication Instructions Recorded clobetasol 0.05 % topical ointment 1 applic topical DAILY #45 grams 12/24/23 albuterol sulfate 90 mcg/actuation 2 puff inhalation Q6H PRN 12/26/23 aerosol inhaler shortness of breath or wheezing #6.7 grams benzonatate 100 mg capsule 100 mg PO TID #15 caps 12/26/23 prednisone 10 mg tablets in a dose 10 mg PO DAILY #21 ea 12/26/23 pack Allergies Allergy/AdvReac Type Severity Reaction Status Date / Time adhesive tape Allergy Severe Pulled my Verified 12/26/23 14:19 skin off Iodinated Contrast Media Allergy Severe Trouble Verified 12/26/23 14:19 breathing Review of Systems <Saniya Demarco PA-C - Last Filed: 12/26/23 16:46> Review of Systems Narrative: Negative except as above Respiratory Comments: Cough, cold, congestion, currently at this time now onset of a mild productive cough. Musculoskeletal Comments: Body aches Patient History <Saniya Demarco PA-C - Last Filed: 12/26/23 16:46> Medical History History of revision of total replacement of left hip joint PTSD (post-traumatic stress disorder) ADHD Anxiety Depression BCC (basal cell carcinoma), face Osteoarthritis Hiatal hernia GERD (gastroesophageal reflux disease) Diverticulitis (~04/19/23) Asthma Factor V Leiden History of COVID-19 (~2021) Surgical History Hx of colonoscopy History of exam under anesthesia with hemorrhoid banding Hx of repair of left rotator cuff Hx of repair of right rotator cuff History of total left hip replacement History of right oophorectomy Hx of cholecystectomy History of eye surgery Social History household members: spouse Smoking Status: Former smoker alcohol intake: current Smoking Status: Former smoker alcohol intake frequency: 0-2 drinks per day Substance Use Type: marijuana Exam <Saniya Demarco PA-C - Last Filed: 12/26/23 16:46> Initial Vital Signs Initial Vital Signs: Vital Signs Temperature 98.8 F 12/26/23 14:12 Pulse Rate 75 12/26/23 14:12 Respiratory Rate 26 H 12/26/23 14:12 Blood Pressure 132/74 12/26/23 14:12 Pulse Oximetry 98 12/26/23 14:12 Oxygen Delivery Method Room Air 12/26/23 14:12 Reviewed [facility] Head: normal to inspection, normocephalic and atraumatic Ears: hearing grossly normal bilaterally, external ears normal, TM's normal bilaterally, TM normal on the right and TM normal on the left Nose: external nose normal, nares normal, septum normal and nasal discharge (Clear) Eyes General: Yes appearance normal, both eyes and all related structures Pupils: PERRL EOM: EOM intact bilaterally Resp Effort & Inspection: able to speak in complete sentences, normal respiratory pattern, no audible wheezes, cough, not labored, no nasal flaring, no respiratory distress, no retractions, no stridor and prolonged expiratory phase Auscultation: clear to auscultation bilaterally, no crackles, lung sounds not diminished, no rales, no rhonchi and wheezes (Faint) expiratory wheezes Cardio Other: Regular rate rhythm without any murmurs rubs or gallops Skin Other: Warm pink and dry Neuro General: patient alert, patient awake, patient oriented x3, oriented and gait normal Cranial Nerves: CN's II-XI intact bilaterally Cognition: normal cognition Speech: speech normal Gait: normal gait Motor: muscle tone normal throughout and strength 5/5 throughout Extrem Other: Range of motion, strength, pulses, cap refill preserved in the upper and lower extremities bilaterally. Psych Appearance: grossly normal and well kempt Mental Status: mental status grossly normal Speech and Movement: speech and movement normal Mood: congruent mood Affect: normal affect Attitude: cooperative Thought Process: normal Thought Content: normal Judgment: judgment good <Kayode Wolfe MD - Last Filed: 12/26/23 21:25> Initial Vital Signs Initial Vital Signs: Vital Signs Temperature 98.8 F 12/26/23 14:12 Pulse Rate 75 12/26/23 14:12 Respiratory Rate 26 H 12/26/23 14:12 Blood Pressure 132/74 12/26/23 14:12 Pulse Oximetry 98 12/26/23 14:12 Oxygen Delivery Method Room Air 12/26/23 14:12 Scores <Saniya Demarco PA-C - Last Filed: 12/26/23 16:46> GCS Citation: 15 Course <Saniya Demarco PA-C - Last Filed: 12/26/23 16:46> Orders Ordered: ED Orders 12/26/23 14:20 XR chest 1V Stat 12/26/23 14:21 Respiratory Panel (Film Array) Stat Discontinued Medications Albuterol/Ipratropium (Albuterol/Ipratropium 3 Ml Ampul) 3 ml INH NOW ONE Stop: 12/26/23 15:23 Last Admin: 12/26/23 15:42 Dose: 3 ml Documented By: QUIN Reevaluation(s) Reevaluation #1: Patient had a breathing treatment, she feels that it did help, she is now able to cough up a little more so the sputum. Explained to the patient that her respiratory panel is negative except for rhino virus. The child has a viral infection. Vital Signs Vital signs: Vital Signs - 8 hr 12/26/23 14:12 12/26/23 15:48 12/26/23 16:19 Temperature 98.8 F 99 F Pulse Rate 75 70 Respiratory Rate 26 H 20 Blood Pressure 132/74 145/75 H Pulse Oximetry 98 100 Oxygen Delivery Method Room Air Room Air Room Air <Kayode Wolfe MD - Last Filed: 12/26/23 21:25> Orders Ordered: ED Orders 12/26/23 14:20 XR chest 1V Stat 12/26/23 14:21 Respiratory Panel (Film Array) Stat Discontinued Medications Albuterol/Ipratropium (Albuterol/Ipratropium 3 Ml Ampul) 3 ml INH NOW ONE Stop: 12/26/23 15:23 Last Admin: 12/26/23 15:42 Dose: 3 ml Documented By: QUIN Vital Signs Vital signs: Vital Signs - 8 hr 12/26/23 14:12 12/26/23 15:48 12/26/23 16:19 Temperature 98.8 F 99 F Pulse Rate 75 70 Respiratory Rate 26 H 20 Blood Pressure 132/74 145/75 H Pulse Oximetry 98 100 Oxygen Delivery Method Room Air Room Air Room Air MDM - URI/Sore Throat <Saniya Demarco PA-C - Last Filed: 12/26/23 16:46> Lab Data Labs: Lab Results 12/26/23 Range/Units 14:21 Chlamy pneumoniae PCR Not detected (Not Detect) Adenovirus (PCR) Not detected (Not Detect) B. pertussis DNA (PCR) Not detected (Not Detect) B.parapertussis DNA PCR Not detected (Not Detecte) Coronavirus OC43 (PCR) Not detected (Not Detect) Coronavirus HKU1 (PCR) Not detected (Not Detect) Coronavirus 229E (PCR) Not detected (Not Detect) SARS-CoV-2 (PCR) Not detected (Not Detecte) Coronavirus NL63 (PCR) Not detected (Not Detect) Human Metapneumovir PCR Not detected (Not Detect) Influenza Type A (PCR) Not detected (Not Detect) Influenza Type B (PCR) Not detected (Not Detect) M. pneumoniae (PCR) Not detected (Not Detect) Parainfluenza 1 (PCR) Not detected (Not Detect) Parainfluenza 2 (PCR) Not detected (Not Detect) Parainfluenza 3 (PCR) Not detected (Not Detect) Parainfluenza 4 (PCR) Not detected (Not Detect) RSV (PCR) Not detected (Not Detect) Entero/Rhino (PCR) Detected H (Not Detect) Imaging Data Chest x-ray: Radiologist's Impression: [address] [address] XRay Report Signed Patient: Amita Mayfield MR#: [id number] : 1965 Acct:[id number] Age/Sex: 58 / F Date of Service: 12/26/23 Loc: ED Accession Number: [id number] Procedure: XR chest 1V Ordering Provider: Kayode Wolfe MD PROCEDURE: XR CHEST 1V INDICATIONS: cough, sob TECHNIQUE: One view of the chest was acquired. COMPARISON: [facility], CT, CT LOW DOSE LUNG CA SCREENING, 09/15/2023, 16:26. FINDINGS: Surgical changes and devices: None. Lungs and pleura: Lungs are clear. No pleural effusions or pneumothorax. Mediastinum: Mediastinal contours appear normal. Heart size is normal. Bones and chest wall: No suspicious bony lesions. Overlying soft tissues appear unremarkable. IMPRESSION: No acute pulmonary process. Dictated by: Natasha Grande M.D. on 12/26/2023 at 15:09 Approved by: Natasha Grande M.D. on 12/26/2023 at 15:09 [facility] Narrative Medical decision making narrative: Patient is a very pleasant 58-year-old female presents to the emergency department with cough, cold, congestion that has been ongoing for 7 days. She presented because she continued to have increasing difficulty breathing and felt like she could not catch her breath. The patient now states she feels like she might have pneumonia or that there might be something else going on. She attempted to use her albuterol inhaler with little relief. She has had no recent sick contacts or traveled anywhere. No recent COVID, influenza or pneumonia shots. She just feels like she has not improving. The only thing that she has used [id number] has been TheraFlu. She had a breathing treatment here in the emergency department she did state that that did help her breathe a little bit better. Explained to her that her chest x-ray is negative for pneumonia. Explained to her that her respiratory panel is positive for rhino virus. Prescription sent to the pharmacy. Chest x-ray is negative for any acute findings DuoNeb patient feels slightly better Respiratory panel shows the patient has enterovirus, the patient has a viral URI. Differential diagnosis, COVID, influenza, RSV, viral infection, URI. Supportive therapy [id number] education for the patient. ED precautions. <Kayode Wolfe MD - Last Filed: 12/26/23 21:25> Lab Data Labs: Lab Results 12/26/23 Range/Units 14:21 Chlamy pneumoniae PCR Not detected (Not Detect) Adenovirus (PCR) Not detected (Not Detect) B. pertussis DNA (PCR) Not detected (Not Detect) B.parapertussis DNA PCR Not detected (Not Detecte) Coronavirus OC43 (PCR) Not detected (Not Detect) Coronavirus HKU1 (PCR) Not detected (Not Detect) Coronavirus 229E (PCR) Not detected (Not Detect) SARS-CoV-2 (PCR) Not detected (Not Detecte) Coronavirus NL63 (PCR) Not detected (Not Detect) Human Metapneumovir PCR Not detected (Not Detect) Influenza Type A (PCR) Not detected (Not Detect) Influenza Type B (PCR) Not detected (Not Detect) M. pneumoniae (PCR) Not detected (Not Detect) Parainfluenza 1 (PCR) Not detected (Not Detect) Parainfluenza 2 (PCR) Not detected (Not Detect) Parainfluenza 3 (PCR) Not detected (Not Detect) Parainfluenza 4 (PCR) Not detected (Not Detect) RSV (PCR) Not detected (Not Detect) Entero/Rhino (PCR) Detected H (Not Detect) Discharge Plan Departure Patient Disposition: Home Clinical Impression: Upper respiratory infection, viral Activity Restrictions/Additional Instructions: Your chest x-ray is negative for pneumonia, your respiratory panel came back positive for rhino virus you have a viral infection. Supportive therapy nasal complaints Nasonex or Flonase followed by ocean spray nasal spray. Sore throat cough drops, throat lozenges, Chloraseptic spray. Dry cough Delsym, wet cough Mucinex, TheraFlu, DayQuil, Vicks Vaporub on the chest. Steam showers, humidified air, plenty of rest, balanced diet, plenty of sleep. Unfortunately this just takes time. I sent some prescriptions to the pharmacy for you. I hope you feel better. Of course hand hygiene is very important to not transmit viruses. Prescriptions: New albuterol sulfate 90 mcg/actuation HFA aerosol inhaler 2 puff inhalation Q6H PRN (Reason: shortness of breath or wheezing) Qty: 6.7 0RF benzonatate 100 mg capsule 100 mg PO TID Qty: 15 0RF prednisone 10 mg tablets,dose pack 10 mg PO DAILY Qty: 21 0RF No Action clobetasol 0.05 % ointment 1 applic topical DAILY Qty: 45 2RF Rx Instructions: apply to vulva every night for 2 weeks, then use 2-3 nights per week for maintenance famotidine 20 mg Tablet 20 mg PO QD-BID PRN (Reason: GI Upset) Referrals: Miscellaneous,Doctor, [Primary Care Provider] - Stand Alone Forms: Patient Portal/API ED Sign-out <Kyaode Wolfe MD - Last Filed: 12/26/23 21:25> Cosign ED Attending Cosignature Attestation: I was immediately available in the department for consultation. Supervised by Kayode Wolfe MD
[2023-12-26] MEDS: ALBUTEROL/IPRATROPIUM 3 ML AMPUL INH (15:42)
[2023-12-26 16:19] VITALS: BP 145/75; PULSE 70; RESP 20; TEMP 37.2; O2SAT 100
== END 2023-12-26 16:19 | disposition home or self-care (01) ==
PROVIDERS: Emergency Medicine; Emergency Provider Physician Assistant
DX: J06.9 Acute upper respiratory infection, unspecified (principal); B34.8 Other viral infections of unspecified site; Z11.52 Encounter for screening for COVID-19
CPT/HCPCS: 71045; 87633; 94640; 99283